=== PATIENT | female | born 1990 | race Caucasian/White ===

== ENCOUNTER 2021-11-23 13:03 | Inpatient (IN) ==
[~2021-11-23 13:03] MED LIST: Oxytocin in LR 20 UNITS/1,000 ML BAG IVPB ONE; Tranexamic Acid 1 GM/100ML BAG 0 MG/0 ML BAG IV ONE
[2021-11-23] MEDS ORDERED: Tetan/Diph/Pertus SYR(Tdap) 0.5 ML SYR(BOOSTRIX) use SYR contains LATEX IM ONE (14:00)
[2021-11-23] MEDS ORDERED: Lactated Ringers 1000 ml BAG 1,000 ML IV SCH (14:00)
[2021-11-23] MEDS ORDERED: Witch Hazel PAD JAR TOPICAL PRN (14:00)
[2021-11-23] MEDS ORDERED: Dibucaine 1% OINT 28.35 GM TUBE PR PRN (14:00)
[2021-11-23] MEDS ORDERED: Oxytocin in LR 20 UNITS/1,000 ML BAG IVPB SCH (14:00)
[2021-11-23] MEDS ORDERED: Glycerin ADULT 2.4 gm SUPP PR PRN (14:00)
[2021-11-23 19:58] LABS: Urine Benzodiazepine Screen None Detected (None Detect); Urine Opiates Screen None Detected (None Detect)
[2021-11-24 06:11] LABS: ABS Eosinophils 0.1 10^3/ul (0-0.6); ABS Lymphocytes 2.1 10^3/ul (1.0-4.8); ABS Monocytes 0.7 10^3/ul (0-0.8); ABS Neutrophils 9.4 10^3/ul (1.5-7.7); Eosinophil % 0.9 %; Hematocrit 22 % (35-47); Hemoglobin 7.5 g/dL (12.0-16.0); Lymphocyte % 17.3 %; Mean Corpuscular HGB Conc 33 g/dL (31-36); Mean Corpuscular Hemoglobin 29 pg (27-31); Mean Corpuscular Volume 85 fL (80-97); Mean Platelet Volume 8.6 fL (7.4-10.4); Platelet Count 236 10^3/uL (150-450); Red Blood Count 2.61 10^6 /uL (3.70-4.87); Red Cell Distribution Width 15 % (10-15); White Blood Count 12.4 10^3/uL (3.5-10.8)
[2021-11-25 10:23] VITALS: BP 112/75
== END 2021-11-25 16:25 | disposition home or self-care (01) | DRG 561 ==
LOC: MCHOBOUT 13:03 → MCHOB 13:03
PROVIDERS: ADMIT Obstetrics & Gynecology; ATTEND Obstetrics & Gynecology